=== PATIENT | male | born 1980 | race Caucasian/White ===

== ENCOUNTER 2025-03-17 08:07 | Emergency (ER) | payer BC, OTHER ==
[2025-03-17] MEDS ORDERED: Naloxone 0.4 MG/ML SDV IVPUSH PRN (11:12)
[2025-03-17] MEDS: fentaNYL 50 MCG/ML SDV IVPUSH ONE (11:14)
== END 2025-03-17 12:08 | disposition home or self-care (01) ==
LOC: MW.ED 08:07
DX: S52.001A Unspecified fracture of upper end of right ulna, initial encounter for closed fracture (principal); W00.0XXA Fall on same level due to ice and snow, initial encounter
CPT/HCPCS: 29105; 73080; 96374; 99283; J3010